=== PATIENT | male | born 1995 | race American Indian/Alaskan Native ===

== ENCOUNTER 2020-05-23 10:56 | Emergency (ER) | payer SELFPAY ==
[2020-05-23 12:07] VITALS: BP 134/93
--- NOTE | 2020-05-23 13:34 | Emergency Department Report ---
ED General Adult HPI - General Chief complaint: Extremity Injury, Upper Stated complaint: RT HAND INJURY Time Seen by Provider: 05/23/20 13:32 Source: patient Mode of arrival: Ambulatory Limitations: No Limitations - History of Present Illness Initial comments: 25-year-old [id number] male patient presents to emergency department with complaints of traumatic right hand pain starting today. Patient states he became angry and punched a wall. No other injuries. No history of prior injuries to the right hand. Denies headache, neck pain, shoulder pain, elbow pain, paresthesias, numbness. Denies all other complaints at this time. Severity scale (0 -10): 9 - Related Data Previous Rx's Medication Instructions Recorded Last Taken Type Naproxen 500 mg PO BID #20 tablet 05/23/20 Unknown Rx ED Review of Systems ROS: Stated complaint: RT HAND INJURY Other details as noted in HPI Other: CARDIOVASCULAR: Negative for chest pain. PULMONARY: Negative for dyspnea. GASTROINTESTINAL: Negative for abdominal pain. MUSCULOSKELETAL: Positive for right hand pain. NEUROLOGICAL: Negative for headache. INTEGUMENTARY: Negative for ecchymosis. ED Past Medical Hx - Past Medical History Previous Medical History?: No - Surgical History Past Surgical History?: No - Medications Home Medications: Home Medications Medication Instructions Recorded Confirmed Last Taken Type Naproxen 500 mg PO BID #20 tablet 05/23/20 Unknown Rx ED Physical Exam - General Limitations: No Limitations - Other Other exam information: General: Awake, appropriately interactive, no acute distress. Neck: Supple. Full range of motion intact. Cardiovascular: Normal peripheral perfusion. Pulmonary: No respiratory distress. Patient is speaking normally without use of accessory muscles. Skin: No apparent rashes or lesions. Neurological: No facial asymmetry. Speech is clear. Follows commands. Patient is alert and oriented. Musculoskeletal: Tenderness to palpation along the base of the right fifth metacarpal with surrounding edema, no obvious dislocation. Full range of motion of the wrist is intact without bony tenderness. There is no tenderness along t he distribution of the anatomical snuffbox. Distal neurovascular and motor/sensory function intact. Psych: Cooperative. Appropriate mood and affect. ED Course Vital Signs 05/23/20 12:06 Temperature 98.3 F Pulse Rate 75 Respiratory 18 Rate Blood Pressure 134/93 [Right] O2 Sat by Pulse 100 Oximetry ED Medical Decision Making - Radiology Data [facility] [address] [place] [address] XRay Report Signed Patient: BRYON MORELAND MR#: [id number] : 1995 Acct:[id number] Age/Sex: 25 / M ADM Date: 05/23/20 Loc: ED Attending Dr: Ordering Physician: ABRAHAM JACOBSEN Date of Service: 05/23/20 Procedure(s): XR hand 2V RT Accession Number(s): [id number] cc: ABRAHAM JACOBSEN Fluoro Time In Minutes: RIGHT HAND 2 VIEWS INDICATION: punched wall. COMPARISON: None. IMPRESSION: A comminuted nondisplaced fracture is identified at the base of the fifth metacarpal. This is consistent with a reverse Mayfield's fracture. Consultation with orthopedics is recommended as this may require surgical pinning. The remaining bony structures and joint spaces are unremarkable. Signer Name: Raymundo Ramos Jr, MD Signed: 05/23/2020 2:02 PM Workstation Name: [id number] Transcribed By: TTR Dictated By: RAYMUNDO RAMOS JR, MD Electronically Authenticated By: RAYMUNDO RAMOS JR, MD Signed Date/Time: 05/23/20 1402 DD/ 1400 TD/TT: Print Cancel - Medical Decision Making Differential diagnosis including but not limited to: sprain, strain, fracture, contusion, dislocation On evaluation, patient remains stable. Repeat neurovascular exam remains intact. X-ray shows comminuted nondisplaced fracture at the base of the fifth metacarpal, consistent with reverse Mayfield's fracture. Case discussed with Dr. Taveras, orthopedics, who reviewed the patient's films and recommends nonoperative management at this time to include ulnar gutter splint and close outpatient follow-up. Patient has been prescribed appropriate analgesics and referral to the orthopedic clinic. Patient expressed understanding and is agreeable to plan of care. RICE precautions discussed. Strict return precautions provided. Repeat exam is unremarkable and benign. History, exam, diagnostic testing, and current condition do not suggest worrisome pathology to warrant further testing, continued ED treatment, admission, or surgical evaluation at this point. Given the low probability of a significant medical illness, it would be more likely to result in harm than benefit to perform further testing at this stage. Discussed findings, presumptive diagnosis, need for follow-up and specific signs/symptoms that should prompt immediate return to the emergency department. Instructions were explained in detail to the patient in addition to giving written discharge information. Patient expressed understanding and was given the opportunity to ask questions, all of which were satisfactorily answered prior to discharge home. Critical care attestation.: If time is entered above; I have spent that time in minutes in the direct care of this critically ill patient, excluding procedure time. ED Disposition Clinical Impression: Fracture of fifth metacarpal bone of right hand Qualifiers: Encounter type: initial encounter Fracture type: closed Metacarpal location: base Fracture alignment: nondisplaced Qualified Code(s): S62.346A - Nondisplaced fracture of base of fifth metacarpal bone, right hand, initial encounter for closed fracture Disposition: TO HOME OR SELFCARE Is pt being admited?: No Does the pt Need Aspirin: No Condition: Stable Instructions: Metacarpal Fracture, [id number] Additional Instructions: Take Tylenol every 4 hours as needed for pain. Take Naprosyn twice daily with food as needed for pain. Wear splint as directed. Keep right hand elevated as often as possible to reduce swelling. Follow-up with Dr. Taveras, orthopedics, within 1 week. Call tomorrow to schedule an appointment. Bring a copy of today's notes with you to your follow- up appointment. Return to the emergency department immediately for new or worsening symptoms Specifically, return to the emergency department immediately for increased pain, worsening swelling, numbness, skin color changes, or any other concerns Prescriptions: Naproxen 500 mg PO BID #20 tablet Referrals: JAKE TAVERAS MD [Staff Physician] - 3-5 Days Time of Disposition: 16:22
--- NOTE | 2020-05-23 14:07 | XRay Report ---
RIGHT HAND 2 VIEWS INDICATION: punched wall. COMPARISON: None. IMPRESSION: A comminuted nondisplaced fracture is identified at the base of the fifth metacarpal. Th is is consistent with a reverse Mayfield's fracture. Consultation with orthopedics is recommended as this may require surgical pinning. The remaining bony structures and joint spaces are unremarkable. Signer Name: Raymundo Ramos Jr, MD Signed: 05/23/2020 2:02 PM Workstation Name: [id number]
[2020-05-23] MEDS ORDERED: NAPROXEN 500 MG TAB PO ONE (16:17)
[2020-05-23] MEDS ORDERED: ACETAMINOPHEN 500 MG TAB PO ONE (16:17)
== END 2020-05-23 17:15 | disposition home or self-care (01) ==
LOC: ED 10:56
DX: S62.346A Nondisplaced fracture of base of fifth metacarpal bone, right hand, initial encounter for closed fracture (principal); Z79.899 Other long term (current) drug therapy; W22.01XA Walked into wall, initial encounter; Y93.89 Activity, other specified; Y92.89 Other specified places as the place of occurrence of the external cause; Y99.8 Other external cause status
CPT/HCPCS: 99283

== ENCOUNTER 2020-05-24 01:33 | Emergency (ER) | payer SELFPAY | END 2020-05-24 03:07 | disposition left against medical advice (07) | LOC: ED 01:33 | DX: M79.641 Pain in right hand (principal); Z53.21 Procedure and treatment not carried out due to patient leaving prior to being seen by health care provider ==